=== PATIENT | female | born 1960 | race Caucasian/White ===

== ENCOUNTER 2018-11-14 10:20 | Emergency (ER) | payer MEDICAID ==
[~2018-11-14] VITALS: Ht 154.9 cm; Wt 54.5 kg
[~2018-11-14 10:20] MED LIST: IBUP-1542 PO; METF-480 PO
[2018-11-14 10:23] VITALS: Ht 154.9 cm; Wt 54.5 kg
[2018-11-14] MEDS ORDERED: ONDANSETRON (ODT) 4 MG TAB ODT STA (10:45)
[2018-11-14] MEDS ORDERED: HYDROCODONE/APAP (5/325) TAB PO ONE (11:00)
[2018-11-14] MEDS ORDERED: CYCL10TA7 PO (12:18)
[2018-11-14] MEDS ORDERED: NAPR-985 PO (12:18)
[2018-11-14] MEDS ORDERED: HYDR-4011 PO (12:18)
[2018-11-14] MEDS ORDERED: MTF1000T PO (12:23)
--- NOTE | 2018-11-14 13:09 | ERD ---
ER Documentation Chief Complaint Chief Complaint back pain/injury due to fall HPI 58-year-old female presenting with back pain. Patient fell down 5-6 steps on her buttock. She denies any numbness or tingling to her legs but does have pain to the lower back region. She has pain with movement has not taken any medi cations for her pain. Denies any head injury or loss of conscious. Denies vomiting. Medical history is diabetes. NKDA. Surgical history denies. Social history denies ROS All systems reviewed and are negative except as per history of present illness. Medications Home Meds Active Scripts Metformin* (Glucophage*) 1,000 Mg Tablet, 1000 MG PO DAILY, #20 TAB Prov:JAG FIERRO PA-C 11/14/18 Cyclobenzaprine Hcl* (Cyclobenzaprine Hcl*) 10 Mg Tablet, 10 MG PO TID, #15 TAB Prov:JAG FIERRO PA-C 11/14/18 Hydrocodone/Acetaminophen (Henriette 5-325 Tablet) 1 Each Tablet, 1 TAB PO Q6H PRN for PAIN, #7 TAB Prov:JAG FIERRO PA-C 11/14/18 Naproxen* (Naprosyn*) 500 Mg Tablet, 500 MG PO BID PRN for PAIN AND/OR INFLAMMATION, #30 TAB Prov:JAG FIERRO PA-C 11/14/18 Metformin* (Glucophage*) 850 Mg Tablet, 850 MG PO WITH MEALS, #90 TAB Prov:ABBE MOORE MD 05/19/16 Ibuprofen* (Motrin*) 600 Mg Tab, 600 MG PO Q6, #20 TAB Prov:ABBE MOORE MD 05/19/16 Allergies Allergies: Coded Allergies: No Known Allergy (Unverified , 08/29/12) PMhx/Soc History of Surgery: No Anesthesia Reaction: No Hx Neurological Disorder: No Hx Respiratory Disorders: No Hx Cardiac Disorders: No Hx Psychiatric Problems: No Hx Miscellaneous Medical Probl: Yes (diabetes) Hx Alcohol Use: No Hx Substance Use: No Hx Tobacco Use: No FmHx Family History: No diabetes, No coronary disease, No other Physical Exam Vitals Vital Signs Date Temp Pulse Resp B/P (MAP) Pulse Ox O2 O2 Flow FiO2 Time Delivery Rate 11/14/18 98.2 88 19 124/73 99 10:23 (90) Physical Exam GENERAL: The patient is well-appearing, well-nourished, in no acute distress CHEST: Clear to auscultation bilaterally. There are no rales, wheezes or rhonchi. HEART: Regular rate and rhythm. No murmurs, clicks, rubs or gallops. BACK: No midline or flank tenderness. Tenderness to lumbar spine EXTREMITIES: Equal pulses bilaterally. There is no peripheral clubbing, cyanosis or edema. No focal swelling or erythema. Full range of motion. Grossly neurovascularly intact. NEUROLOGIC: Alert and oriented. Cranial nerves II through XII intact. Motor strength in all 4 extremities with 5 out of 5 strength. Sensation grossly intact. Normal speech and gait. SKIN: There is no apparent rash or petechiae. The skin is warm and dry. Results 24 hrs Current Medications Medications Dose Sig/Annamaria Start Time Status Last (Trade) Ordered Route PRN Stop Time Admin Dose Reason Admin 1 tab ONCE ONCE 11/14/18 DC 11/14/18 Acetaminophen PO 11:00 10:51 / 11/14/18 11:01 Hydrocodone Bitart (Henriette (5/325)) Ondansetron 4 mg ONCE STAT 11/14/18 DC 11/14/18 HCl (Zofran ODT 10:45 10:51 Odt) 11/14/18 10:46 Procedures/MDM DIAGNOSTIC IMAGING REPORT Patient: JUJU CASTELAN : 1960 Age: 58 Sex: F MR #: [id number] DOS: 11/14/18 1044 Ordering MD: HEATH FIERRO PA-C Location: [facility] Room/Bed: PROCEDURE: Lumbar spine series CLINICAL INDICATION: Pain status post fall TECHNIQUE: AP and lateral views COMPARISON: None available FINDINGS: Mild dextroscoliosis is noted of the lumbar spine with the apex at the L3-4 level. Preservation of vertebral body heights are noted. Grade 1, 3 mm spondylolisthesis of L4-5 and L5-S1 is present without evidence for spondylolysis. Facet sclerosis is noted at the L4-5 in L5-S1 level. Generalized osteopenia is present. No abnormal calcifications project over the bilateral renal collecting system. An abundance of stool is noted in the colon and correlate with constipation. The bilateral sacroiliac joints, sacrum and iliac wings are normal. IMPRESSION: 1. Grade 1, 3 mm, spondylolisthesis of L4 on L5 and L5 on S1 without definite evidence for spondylolysis. 2. No evidence for acute fractures or traumatic subluxations 3. Mild dextroscoliosis with apex at L3-4 4. Abundance of stool and correlate with constipation DIAGNOSTIC IMAGING REPORT Patient: JUJU CASTELAN : 1960 Age: 58 Sex: F MR #: [id number] DOS: 11/14/18 1044 Ordering MD: HEATH FIERRO PA-C Location: [facility] Room/Bed: PROCEDURE: Sacrum and coccyx CLINICAL INDICATION: Pain status post fall TECHNIQUE: AP and lateral views COMPARISON: Lumbar spine and thoracic spine series same date FINDINGS: A grade 1, 3 mm spondylolisthesis of L4-5 and L5-S1 is noted without definite evidence for spondylolysis. Facet sclerosis is noted at these levels. The visua lized sacrum and imaged portions of the coccyx are normal. Generalized osteopenia is present. The bilateral sacroiliac joints, iliac wings sacrum and bilateral hips appear normal. IMPRESSION: 1. No acute fractures or subluxations 2. Grade 1, 3 mm anterior spondylolisthesis of L4-5 and L5-S1 without evidence for spondylolysis. 3. Generalized osteopenia DIAGNOSTIC IMAGING REPORT Patient: JUJU CASTELAN : 1960 Age: 58 Sex: F MR #: [id number] DOS: 11/14/18 1044 Ordering MD: HEATH FIERRO PA-C Location: [facility] Room/Bed: PROCEDURE: Thoracic spine series CLINICAL INDICATION: Pain status post fall TECHNIQUE: AP and lateral views COMPARISON: None available FINDINGS: The spine alignment is normal with normal thoracic kyphosis. No evidence for acute fractures or traumatic subluxations are noted. Preservation of vertebral body heights and the spaces are noted. The posterior elements appear well aligned and intact. Generalized osteopenia is present. The paravertebral soft tissues are normal. IMPRESSION: 1. No acute fractures or traumatic subluxations. 2. Generalized osteopenia MDM: 58-year-old female presenting with back pain. I have low suspicion for acute fracture dislocation. I have low suspicion for nerve deficit or impingement. Patient be discharged with supportive medications and told to follow-up with primary care within 1-2 days for close evaluation. Patient is told if symptoms change or worsen to return immediately to the ER. All questions answered at discharge Departure Diagnosis: Primary Impression: Back pain Condition: Stable Patient Instructions: Back Pain (Acute Or Chronic) Referrals: [facility] YOU HAVE RECEIVED A MEDICAL SCREENING EXAM AND THE RESULTS INDICATE THAT YOU DO NOT HAVE A CONDITION THAT REQUIRES URGENT TREATMENT IN THE EMERGENCY DEPARTMENT. FURTHER EVALUATION AND TREATMENT OF YOUR CONDITION CAN WAIT UNTIL YOU ARE SEEN IN YOUR DOCTORS OFFICE WITHIN THE NEXT 1-2 DAYS. IT IS YOUR RESPONSIBILITY TO MAKE AN APPOINTMENT FOR FOLOW-UP CARE. IF YOU HAVE A PRIMARY DOCTOR --you should call your primary doctor and schedule an appointment IF YOU DO NOT HAVE A PRIMARY DOCTOR YOU CAN CALL OUR PHYSICIAN REFERRAL HOTLINE AT IF YOU CAN NOT AFFORD TO SEE A PHYSICIAN YOU CAN CHOSE FROM THE FOLLOWING [facility] [address] [facility] [address] [employer] [facility] [address] [facility] [address] [facility] [address] [facility]. [facility]. [address] Additional Instructions: FOLLOW UP WITH YOUR PRIMARY CARE PHYSICIAN TOMORROW.Return to this facility if y ou are not improving as expected. JAG FIERRO PA-C Nov 14, 2018 13:09
[2018-11-14 13:44] VITALS: BP 122/68; PULSE 78; RESP 18
== END 2018-11-14 13:45 | disposition home or self-care (01) ==
LOC: FTE 10:20
DX: M54.5 Low back pain (principal); E11.9 Type 2 diabetes mellitus without complications; Z79.84 Long term (current) use of oral hypoglycemic drugs
CPT/HCPCS: 72072; 72100; 72220; Z7502; Z7610